=== PATIENT | male | born 1955 | race Caucasian/White ===

== ENCOUNTER 2025-03-04 09:35 | Day surgery (SDC) | payer MEDICARE, SELFPAY ==
[2025-02-27 11:03] VITALS: BMI 38.2
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
--- NOTE | 2025-03-04 07:07 | P.PCN_ITS ---
[facility] Procedure Note Date: 03/04/25 Time: 11:14 Procedure Note:: Upper Endoscopy Procedure Report: Esophagogastroduodenoscopy with cold biopsies Endoscopost: Vijay Orellana II, MD Referring Physician: Regina Peralta M.D. Date of Procedure: March 04, 2025 Equipment: Olympus GIF-1100 standard upper endoscope Sedation: MAC sedation Indications: Mr. Fox is a 69-year-old gentleman who is here for diagnostic EGD. The patient does report intermittent nausea and vomiting for 4 to 5 m onths. He also reports intermittent epigastric abdominal discomfort and dyspepsia. He was having heartburn and reflux at least 2 to 3 days a week. Most of the symptoms have improved recently. He is on pantoprazole 40 mg daily with breakthrough heartburn. The patient reports some early satiety and occasional belching. He reports no dysphagia. He has never had an upper endoscopy. He did go to the ED in early December and his CAT scan showed mesenteric panniculitis. He was placed on prednisone, famotidine and ibuprofen. The examination is deemed medically necessary for diagnostic EGD. Procedure: Prior to the procedure, a history and physical exam was performed, and patient's medications and allergies were reviewed. The risks, benefits and alternatives of the sedation and procedure were discussed with the patient. All questions were answered and informed consent was obtained. The patient was brought to the procedure room. Patient identification and proposed procedure were verified by the physician and the nurse. The patient was placed in a left lateral decubitus position and the scope was passed under direct vision. Throughout the procedure, the patient's blood pressure, pulse, and oxygen saturations were monitored continuously. The upper GI endoscopy was accomplished without difficulty. The patient tolerated the procedure well. Findings: The scope was passed directly into the upper esophagus and advanced to the third portion of the duodenum. The post bulbar duodenum and duodenal bulb were normal with normal mucosa and conniventes. 2 cold biopsies were taken from the second portion of the duodenum for the disaccharidase assay. The scope was withdrawn through a normal duodenal bulb and pylorus into the stomach. There was bile reflux with mild antral gastropathy. There was also mild proximal chronic gastritis. 2 cold biopsies were taken along the lesser curvature to rule out H. pylori. Upon retroflexion there was no hiatal hernia. The scope was then withdrawn into the esophagus. There was no evidence of reflux esophagitis or Reddy's. The remainder of the esophageal mucosa was normal. Impression: 1. Mild antral gastropathy and mild proximal chronic gastritis Plan: I will follow-up the biopsies and disaccharidase assay. The patient's clinical symptoms have improved.
[2025-03-04 10:37] VITALS: BP 143/86; PULSE 59; RESP 17; TEMP 36.2; O2SAT 96
[2025-03-04] MEDS: LACTATED RINGERS 1000ML 1,000 ML 50 ML IV (10:43)
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
[2025-03-04 11:15] VITALS: BP 108/71; PULSE 79; RESP 16; TEMP 36.2; O2SAT 94
[2025-03-04 11:25] VITALS: BP 109/79; PULSE 68; RESP 17; TEMP 36.2; O2SAT 95
[2025-03-04 11:35] VITALS: BP 136/80; PULSE 62; RESP 17; TEMP 36.2; O2SAT 96
[2025-03-04 11:45] VITALS: BP 136/89; PULSE 64; RESP 18; TEMP 36.2; O2SAT 96
[2025-03-07 13:12] LABS: Interpretation Notes (.); Lactase 27.12 (>/= 14.0); Maltase 271.26 (>/= 110.0); Palatinase 18.46 (>/= 8.5); Reference Notes (.); Sucrase 73.83 (>/= 25.0)
== END 2025-03-04 11:45 | disposition home or self-care (01) ==
PROVIDERS: PCP Nurse Practitioner; Visit Provider Internal Medicine Gastroenterology
PROC: 0DJ08ZZ Inspection of Upper Intestinal Tract, Via Natural or Artificial Opening Endoscopic (ICD-10-PCS; CPT 43239; principal; 2025-03-04 11:30)
DX: K29.50 Unspecified chronic gastritis without bleeding (principal); K31.9 Disease of stomach and duodenum, unspecified; K21.9 Gastro-esophageal reflux disease without esophagitis; K65.4 Sclerosing mesenteritis; E78.2 Mixed hyperlipidemia; I10 Essential (primary) hypertension; G62.9 Polyneuropathy, unspecified; Z79.899 Other long term (current) drug therapy
CPT/HCPCS: 43239; 82657; J2003; J2704; J7120